=== PATIENT | female | born 1965 | race Caucasian/White ===

== ENCOUNTER 2024-04-13 06:00 | Emergency (ER) | payer BC, SELFPAY ==
[2024-04-13 06:09] VITALS: BP 176/88
[2024-04-13 06:24] VITALS: BMI 34.9
--- NOTE | 2024-04-13 06:27 | EDRN ---
Pt has not felt well for past couple weeks but says in past 1-2 days her heart 'has been racing like crazy' and last night she was unable to sleep so she knew something 'just wasn't right.' Pt feels tired and says she feels her heart is racing -
monitor shows HR 80, NSR. Pt denies cp, sob, abd pain, fever/chills/cough, n/v, weakness, dizziness. Pt adds in past couple weeks she has not felt 'right, like fuzzy and tired.'
--- NOTE | 2024-04-13 06:50 | ED.GENMED ---
History of Present Illness
General
Chief Complaint: Heart Rate Problem
Source: patient
Exam Limitations: none
Time Seen by Provider: 04/13/24 06:41
History of Present Illness
History of Present Illness:
See MDM
Past History
Past History
ED Past Medical History: None
ED Past Surgical History: None
Social History
Tobacco: Non-smoker
Alcohol: None
Phy Exam
Physical Exam
Physical Exam:
See MDM
Course
Orders/Labs/Results
Orders:
Orders
04/13/24 06:28
EKG [Electrocardiogram (*1)] Urgent
Reason for Study: Palpitations
04/13/24 06:29
EKG- Treatment ONCE
04/13/24 06:50
Lorazepam [Ativan] 0.5 mg IV NOW STA
04/13/24 07:19
Complete Blood Count/With Diff Urgent
04/13/24 07:40
Comprehensive Metabolic Panel Urgent
Magnesium Urgent
TSH Reflex To Free T4 Urgent
Troponin I Urgent
Abnormal Lab Results
04/13/24 04/13/24
07:19 07:40
Lymphocytes % 20.0 L %
(20.5-51.1)
Glucose 106 H mg/dl
(70-99)
Calcium 10.3 H mg/dl
(8.4-10.2)
04/13/24 07:19
04/13/24 07:40
Vital Signs
Initial and Last Documented VS:
Initial Vital Signs
Temp Pulse Resp BP Pulse Ox
98.1 F 85 20 176/88 97
04/13/24 06:09 04/13/24 06:09 04/13/24 06:09 04/13/24 06:09 04/13/24 06:09
Last Documented Vital Signs
Temp Pulse Resp BP Pulse Ox
98.1 F 80 14 135/77 98
04/13/24 06:09 04/13/24 10:00 04/13/24 10:00 04/13/24 10:00 04/13/24 10:00
MDM/Problems Addressed
Differential Diagnosis Includes:
HPI and MDM Narrative:
58-year-old female presenting with feeling 'off' for 2 weeks. Patient now noticing palpitations for the past week. Patient was concerned because she could not get sleep last night. Patient still has symptoms but EKG shows normal sinus rhythm.
Given her ongoing symptoms, will obtain basic blood work and 1 troponin. She denies chest pain or shortness of breath. I did note that she did have a murmur. She states has a history of a murmur but states she has never had this figured out. We
discussed following up with cardiology as an outpatient if workup is negative.
I did question the concern for stress or anxiety. Patient is unsure if this could be stress related. Will give dose of Ativan
Physical exam
General: Well appearing and non-toxic
HEENT: protecting airway
Neck: appears supple
CV: No evidence of cyanosis. Regular rate and rhythm. Murmur auscultated
Resp: No accessory muscle use. Lungs clear
Abd: Non-distended
Extremities: No deformities. No leg edema
Neuro: alert
Psych: Normal affect
Skin: Intact
Problems Addressed including Acute and Chronic Conditions affecting care:
1. Palpitations
Acuity: acute
Prognosis: stable
Details: EKG normal sinus rhythm. Will obtain basic blood work and thyroid testing
Updates
Blood work without significant abnormality. Reassessment after Ativan, she states she is feeling better. Discussed follow-up with PCP and outpatient follow-up with cardiology
At this time, daughter is at bedside indicating that patient is decongestions past few days and is unsure if this is related
Differential Diagnosis (but not limited to): PVCs, hypothyroidism, stress
Testing considered: Chest x-ray but lungs clear
Drug therapy (if applicable): OTC meds, please see d/c instruction regarding Rx drugs
Amount and/or Complexity of Data Reviewed
Clinical info obtained from: Patient. Daughter indicated that patient has been taking congestion medicine and concern for possible side effect
External data reviewed: N/A
Labs I independently reviewed (but not limited to): Troponin normal
Radiology: N/A
Pulse Ox: not hypoxic
EKG independently reviewed: Sinus rhythm, normal axis, no STEMI
Dairy Nutritionist: Sinus rhythm
Critical Care: N/A
Risk of Complication:
Social Determinants of health: Good social support
Discussed with other providers: N/A
Escalation of Care includes Admit/Obs: After being observed in the Emergency Department, pt stable for discharge.
Occasional wrong word or 'sound a like' substitutions may have occurred due to the inherent limitations of voice recognition software. Read the chart carefully and recognize, using context, where substitutions have occurred.
*Critical Care Note
Total Time (30-74mins, 75-104mins- exclusive of procedures): Not Applicable
ED Attending Note
-
Portions of this chart may have been created with voice recognition software.� Occasional wrong word or��sound alike� substitutions may have occurred due to the inherent limitations of voice recognition software.
Discharge Plan
Departure
Patient Disposition: Home (Routine Discharge)
Date of Disposition: 04/13/24
Time of Disposition: 10:16
Patient with high blood pressure during this ER visit?: No
Discharge Problem:
Heart palpitations
Prescriptions:
New
lorazepam [Ativan] 0.5 mg tablet
0.5 mg PO BID PRN (Reason: anxiety) Qty: 14 0RF
No Action
lisinopril 10 mg Tablet
10 mg PO DAILY
Referrals:
Becky Dominguez CRNP [Family Provider] -
Tam Vera MD [Active] -
Activity Restrictions/Additional Instructions:
Please return for any worsening symptoms.
You may return at any time if you have further concerns.
Please follow up with your doctor at the first available appointment, preferably this week.
Please make an appointment with the manager pathology to further evaluate your murmur and palpitations.
Thank you for choosing [facility].
Interventions
Interventions:
*Risk Screen - Suicide Last Done: 04/13/24 06:09
*General Assessment Last Done: 04/13/24 06:09
*Neglect/Abuse Screening Last Done: 04/13/24 06:09
ED- Fall Risk Assessment Last Done: 04/13/24 07:32
*ED COVID-19 Vaccine History Last Done: 04/13/24 06:16
ED- Cardiac Assessment Last Done: 04/13/24 06:30
ED- Pulmonary Assessment Last Done: 04/13/24 06:30
Discharge Date and Time
Print Language: PASHTO
[2024-04-13] MEDS: ATIVAN 0.5 MG IV (07:23)
[2024-04-13 07:30] VITALS: BP 145/76
[2024-04-13 07:42] LABS: % Basophils 0.7 % (0-2); % Eosinophils 2.1 % (0-6); % Immature Granulocytes 0.3 % (0-0.5); % Monocytes 5.2 % (1.7-9.3); % Neutrophils 71.7 % (42.2-75.2); Absolute Basophils 0.1 10^3/uL (0-0.2); Absolute Eosinophils 0.2 10^3/uL (0-0.7); Absolute Lymphocytes 1.4 10^3/uL (1.2-3.4); Absolute Monocytes 0.4 10^3/uL (0.1-0.6); Absolute Neutrophils 5.1 10^3/uL (1.4-6.5); Hematocrit 45.1 % (37.0-47.0); Hemoglobin 15.5 g/dL (12.0-16.0); Mean Corp Hgb Conc. 34.4 g/dL (33.0-37.0); Mean Corpuscular Hgb 29.5 pg (27.0-31.0); Mean Corpuscular Volume 85.7 fL (81.0-99.0); Mean Platelet Volume 10.2 fL (7.4-10.4); Nucleated Red Blood Cells % 0 %; Platelet Count 326 10^3/uL (130-400); Red Blood Cell Count 5.26 10^6/uL (4.20-5.40); Red Cell Dist. Width 12.8 % (11.5-14.5); White Blood Cell Count 7.2 10^3/uL (4.8-10.8)
[2024-04-13 08:39] LABS: ALT (SGPT) 15 U/L (0-35); AST (SGOT) 21 U/L (14-36); Albumin 4.2 g/dl (3.5-5.0); Alkaline Phosphatase 77 U/L (38-126); Blood Urea Nitrogen 14 mg/dl (7-17); Calcium 10.3 mg/dl (8.4-10.2); Carbon Dioxide 28 mmol/L (22-30); Chloride 104 mmol/L (98-107); Estimated Creatinine Clearance 96 ml/min; Glucose 106 mg/dl (70-99); Magnesium 2.2 mg/dl (1.6-2.3); Potassium 4.4 mmol/L (3.5-5.1); Sodium 138 mmol/L (135-145); Total Bilirubin 0.5 mg/dl (0.2-1.3); Total Protein 7.4 g/dl (6.3-8.2); eGFR > 60.00
[2024-04-13 08:41] LABS: Troponin I < 0.012 ng/ml
[2024-04-13 09:00] VITALS: BP 135/69
[2024-04-13 09:02] LABS: TSH Reflex To Free T4 1.06 uIU/ml (0.47-4.68)
[2024-04-13 10:00] VITALS: BP 135/77
== END 2024-04-13 10:30 | disposition home or self-care (01) ==
LOC: EMR 06:00
PROVIDERS: EMERGENCY PHYSICIAN Student in an Organized Health Care Education/Training Program; FAMILY PHYSICIAN Nurse Practitioner Family
DX: R00.2 Palpitations (principal)
CPT/HCPCS: 99283; 96374; 80053; 83735; 84443; 84484; 85025; 93005

== ENCOUNTER → 2024-05-13 14:17 | Outpatient (REF) | payer BC, SELFPAY | LOC: RCS 14:17 | PROVIDERS: ATTENDING PHYSICIAN Nurse Practitioner Family | DX: R00.2 Palpitations (principal); R51.9 Headache, unspecified | CPT/HCPCS: 93017; 93350 ==

== ENCOUNTER 2024-05-21 06:40 | Emergency (ER) | payer BC, SELFPAY ==
[2024-05-21 06:46] VITALS: BMI 27.9
[2024-05-21 07:13] VITALS: BP 156/71
--- NOTE | 2024-05-21 07:15 | ED.GENMED ---
History of Present Illness
General
Chief Complaint: Nose Bleed
Source: patient
Exam Limitations: none
Time Seen by Provider: 05/21/24 07:02
History of Present Illness
History of Present Illness:
See MDM
Past History
Past History
ED Past Medical History: None
ED Past Surgical History: None
Social History
Tobacco: Non-smoker
Alcohol: None
Phy Exam
Physical Exam
Physical Exam:
See MDM
Course
Vital Signs
Initial and Last Documented VS:
Initial Vital Signs
Pulse Ox
99
05/21/24 06:46
Last Documented Vital Signs
Temp Pulse Resp BP Pulse Ox
98.5 F 86 16 156/71 99
05/21/24 07:13 05/21/24 07:13 05/21/24 07:13 05/21/24 07:13 05/21/24 07:13
MDM/Problems Addressed
Differential Diagnosis Includes:
HPI and MDM Narrative:
58-year-old female presenting for evaluation of resolved nosebleed. Patient went to work and noted that her nose started bleeding. It self resolved. Patient denies being on blood thinners. She denies headaches
I do long discussion with the patient in regards to cauterizing the mild excoriation noted to the right nasal septum. However, it had already self resolved and the area is very small. It was shared decision making to place bacitracin on the area
and educated her on the nose clamp
Physical exam
General: Well appearing and non-toxic
HEENT: protecting airway. Mild excoriation to right nasal septum. No active bleeding
Neck: appears supple
CV: No evidence of cyanosis
Resp: No accessory muscle use
Abd: Non-distended
Extremities: No deformities
Neuro: alert
Psych: Normal affect
Skin: Intact
Problems Addressed including Acute and Chronic Conditions affecting care:
1. Resolved nose bleeding
Acuity: acute
Prognosis: stable
Details: Bacitracin placed on the excoriation. Patient educated on nose clamp. Discussed follow-up with ENT if symptoms persist
Differential Diagnosis (but not limited to): Nosebleed, nose trauma
Testing considered: Blood work
Drug therapy (if applicable): OTC meds, please see d/c instruction regarding Rx drugs
Amount and/or Complexity of Data Reviewed
Clinical info obtained from: Patient
External data reviewed: N/A
Labs I independently reviewed (but not limited to): [N/A
Radiology: N/A
Pulse Ox: not hypoxic
EKG independently reviewed: N/A
Dryer Operator: N/A
Critical Care: N/A
Risk of Complication:
Social Determinants of health: Good social support
Discussed with other providers: N/A
Escalation of Care includes Admit/Obs: After being observed in the Emergency Department, pt stable for discharge.
Occasional wrong word or 'sound a like' substitutions may have occurred due to the inherent limitations of voice recognition software. Read the chart carefully and recognize, using context, where substitutions have occurred.
*Critical Care Note
Total Time (30-74mins, 75-104mins- exclusive of procedures): Not Applicable
ED Attending Note
-
Portions of this chart may have been created with voice recognition software.� Occasional wrong word or��sound alike� substitutions may have occurred due to the inherent limitations of voice recognition software.
Discharge Plan
Departure
Patient Disposition: Home (Routine Discharge)
Date of Disposition: 05/21/24
Time of Disposition: 07:20
Patient with high blood pressure during this ER visit?: No
Discharge Problem:
Nasal bleeding
Instructions: Nosebleeds (DC)
Prescriptions:
No Action
lisinopril 10 mg Tablet
10 mg PO DAILY
Referrals:
Abundio Diaz MD [Active] -
Activity Restrictions/Additional Instructions:
Please return for worsening symptoms. Call you Primary Doctor for a follow up appointment. Please call the ENT if symptoms persist.
Interventions
Interventions:
*Risk Screen - Suicide Last Done: 05/21/24 06:46
*General Assessment Last Done: 05/21/24 06:46
*Neglect/Abuse Screening Last Done: 05/21/24 06:46
ED- Fall Risk Assessment Last Done: 05/21/24 06:46
*ED COVID-19 Vaccine History Last Done: 05/21/24 06:46
ED-EENT Assessment Last Done: 05/21/24 06:46
Discharge Date and Time
Print Language: DANISH
== END 2024-05-21 07:40 | disposition home or self-care (01) ==
LOC: EMR 06:40
PROVIDERS: EMERGENCY PHYSICIAN Student in an Organized Health Care Education/Training Program; FAMILY PHYSICIAN Nurse Practitioner Family
DX: R04.0 Epistaxis (principal); Z88.2 Allergy status to sulfonamides
CPT/HCPCS: 99282

== ENCOUNTER → 2024-06-12 06:22 | Outpatient (REF) | payer BC, SELFPAY ==
[2024-06-12 07:50] LABS: % Eosinophils 4.6 % (0-6); % Immature Granulocytes 0.3 % (0-0.5); % Lymphocytes 28.3 % (20.5-51.1); % Monocytes 9.3 % (1.7-9.3); % Neutrophils 56.5 % (42.2-75.2); Absolute Basophils 0.1 10^3/uL (0-0.2); Absolute Eosinophils 0.3 10^3/uL (0-0.7); Absolute Monocytes 0.7 10^3/uL (0.1-0.6); Hematocrit 40.8 % (37.0-47.0); Hemoglobin 13.7 g/dL (12.0-16.0); Mean Corp Hgb Conc. 33.6 g/dL (33.0-37.0); Mean Corpuscular Hgb 29.5 pg (27.0-31.0); Mean Corpuscular Volume 87.9 fL (81.0-99.0); Mean Platelet Volume 9.8 fL (7.4-10.4); Nucleated Red Blood Cells % 0 %; Platelet Count 339 10^3/uL (130-400); Red Blood Cell Count 4.64 10^6/uL (4.20-5.40); Red Cell Dist. Width 12.9 % (11.5-14.5); White Blood Cell Count 7.1 10^3/uL (4.8-10.8)
[2024-06-12 08:15] LABS: HDL Cholesterol 78 mg/dl; LDL Cholesterol, Calculated 172 mg/dl; Total Cholesterol 266 mg/dl (50-199); Triglyceride 80 mg/dl (10-149); Very Low Density Lipoprotein 16 mg/dl (0-30)
== END ==
LOC: REG 06:22
PROVIDERS: ATTENDING PHYSICIAN Nurse Practitioner Family
DX: Z00.00 Encounter for general adult medical examination without abnormal findings (principal); E78.00 Pure hypercholesterolemia, unspecified
CPT/HCPCS: 36415; 80061; 85025

== ENCOUNTER → 2025-07-22 06:29 | Outpatient (REF) | payer BC, SELFPAY ==
[2025-07-22 07:37] LABS: Hematocrit 44.4 % (37.0-47.0); Hemoglobin 14.6 g/dL (12.0-16.0); Mean Corp Hgb Conc. 32.9 g/dL (33.0-37.0); Mean Corpuscular Volume 88.1 fL (81.0-99.0); Nucleated Red Blood Cells % 0 %; Platelet Count 309 10^3/uL (130-400); Red Cell Dist. Width 12.8 % (11.5-14.5)
[2025-07-22 08:08] LABS: ALT (SGPT) 19 U/L (0-35); AST (SGOT) 21 U/L (14-36); Albumin 4.7 g/dl (3.5-5.0); Alkaline Phosphatase 83 U/L (38-126); Blood Urea Nitrogen 18 mg/dl (7-17); Calcium 10.0 mg/dl (8.4-10.2); Carbon Dioxide 29 mmol/L (22-30); Chloride 105 mmol/L (98-107); Glucose 101 mg/dl (70-99); HDL Cholesterol 74 mg/dl; LDL Cholesterol, Calculated 174 mg/dl; Potassium 4.7 mmol/L (3.5-5.1); Sodium 141 mmol/L (135-145); Total Protein 8.2 g/dl (6.3-8.2); Very Low Density Lipoprotein 16 mg/dl (0-30); eGFR > 60.00
== END ==
LOC: REG 06:29
PROVIDERS: ATTENDING PHYSICIAN Nurse Practitioner Family
DX: I10 Essential (primary) hypertension (principal); M43.16 Spondylolisthesis, lumbar region; E66.09 Other obesity due to excess calories; E78.2 Mixed hyperlipidemia
CPT/HCPCS: 36415; 80053; 80061; 84443; 85025